=== PATIENT | female | born 1990 | race Caucasian/White ===

== ENCOUNTER 2021-09-11 15:22 | Inpatient (IN) | payer OTHER ==
[2021-09-11 16:06] VITALS: TEMP 97.8
[2021-09-11 16:34] VITALS: BMI 33.5
[2021-09-11] MEDS ORDERED: TERBUTALINE SULFATE 1 MG/1 ML VIAL SQ ONE ×2 (16:37→16:40)
[2021-09-11 17:28] VITALS: BP 95/58; PULSE 94
[2021-09-11] MEDS ORDERED: ELECTROLYTE-148 SOLN 1,000 ML IV SCH (18:15)
== END 2021-09-11 19:35 | disposition home or self-care (01) | DRG 833 ==
LOC: JLDR 15:22
PROVIDERS: ADMIT Obstetrics & Gynecology; ATTEND Obstetrics & Gynecology
PROC: 10S0XZZ Reposition Products of Conception, External Approach (ICD-10-PCS; principal; 2021-09-11)
DX: O32.8XX0 Maternal care for other malpresentation of fetus, not applicable or unspecified (principal); Z3A.38 38 weeks gestation of pregnancy

== ENCOUNTER 2021-09-20 16:50 | Inpatient (IN) | payer OTHER ==
[2021-09-20] MEDS ORDERED: CITRIC ACID/SODIUM CITRATE 30 ML UNIT-DOSE CUP PO ONE (17:00)
[2021-09-20] MEDS ORDERED: ELECTROLYTE-148 SOLN 500 ML IV ONE ×2 (17:00→18:00)
[2021-09-20 17:55] VITALS: BMI 33.5
[2021-09-20] MEDS ORDERED: EPINEPHrine 1:1,000 1 MG/ML VIAL ONE (18:37)
[2021-09-20] MEDS ORDERED: PHENYLEPHRINE HCL 10 MG/1 ML SINGLE DOSE VIAL ONE (18:38)
[2021-09-20] MEDS ORDERED: OXYTOCIN 20 UNITS in 0.9% NS 20 UNIT/1,000 ML INFUS.BAG IV ONE ×3 (18:38→21:05)
[2021-09-20] MEDS ORDERED: ceFAZolin SODIUM 1 GM VIAL ONE (18:51)
[2021-09-20] MEDS ORDERED: SODIUM CHLORIDE 0.9% P/F 10 ML VIAL IJ ONE (18:52)
[2021-09-20] MEDS ORDERED: ONDANSETRON 4 MG/2 ML VIAL ONE (19:48)
[2021-09-20 21:17] LABS: CORD BASE EXCESS -4.6 mmol/L (0-2); CORD HCO3 20.9 mmHg (20-29); CORD PCO2 39.9 mmHg (30-78); CORD pH 7.336 (7.14-7.44)
[2021-09-20 21:19] LABS: CORD HCO3 21.8 mmHg (20-29); CORD PCO2 57.2 mmHg (30-78); CORD pH 7.198 (7.14-7.44)
[2021-09-20] MEDS ORDERED: ONDANSETRON 4 MG/2 ML VIAL IVPUSH PRN (21:37)
[2021-09-20] MEDS ORDERED: KETOROLAC TROMETHAMINE 30 MG/1 ML VIAL IVPUSH PRN (21:43)
[2021-09-20] MEDS ORDERED: METOCLOPRAMIDE HCL INJECTION 10 MG/2 ML VIAL IVPUSH ONE (22:28)
[2021-09-20] MEDS ORDERED: METOCLOPRAMIDE HCL INJECTION 10 MG/2 ML VIAL ONE (22:30)
[2021-09-21] MEDS: ELECTROLYTE-148 SOLN 1,000 ML IV SCH (00:25)
[2021-09-21] MEDS: ACETAMINOPHEN 1000 MG/100 ML BAG IVPB SCH ×4 (01:08→16:10)
[2021-09-21 09:32] LABS: HEMATOCRIT 31.2 % (32.4-45.2); HEMOGLOBIN 10.4 GM/dL (10.7-15.3); MCH 26.3 pg (25.7-33.7); MCHC 33.3 g/dl (32.0-36.0); MEAN PLT VOLUME 10.1 fl (7.5-11.1); PLATELET COUNT 119 10^3/uL (134-434); RBC 3.95 M/mm3 (3.60-5.2); RDW 14.6 % (11.6-15.6); WHITE BLOOD COUNT 12.8 K/mm3 (4.0-10.0)
[2021-09-21] MEDS: IBUPROFEN 600 MG TABLET (FP) PO PRN ×2 (11:59→20:14)
[2021-09-21] MEDS: oxyCODONE HCL 5 MG TABLET PO PRN (23:32)
[2021-09-22] MEDS: ACETAMINOPHEN 500 MG TABLET (FP) PO PRN ×2 (05:31→12:43)
[2021-09-22] MEDS: oxyCODONE HCL 5 MG TABLET PO PRN ×3 (07:54→23:28)
[2021-09-22] MEDS ORDERED: BISACODYL 10 MG SUPP.RECT PR PRN (09:52)
[2021-09-22] MEDS: IBUPROFEN 600 MG TABLET (FP) PO PRN ×2 (09:56→19:57)
[2021-09-22] MEDS: ELECTROLYTE-148 SOLN 1,000 ML IV SCH (23:30)
[2021-09-23] MEDS: ACETAMINOPHEN 500 MG TABLET (FP) PO PRN (06:28)
[2021-09-23] MEDS: IBUPROFEN 600 MG TABLET (FP) PO PRN ×3 (07:58→21:48)
[2021-09-23 12:25] LABS: HEMATOCRIT 33.6 % (32.4-45.2); HEMOGLOBIN 11.1 GM/dL (10.7-15.3); MCH 26.6 pg (25.7-33.7); MCHC 33.1 g/dl (32.0-36.0); MEAN CELL VOLUME 80.3 fl (80-96); MEAN PLT VOLUME 9.6 fl (7.5-11.1); PLATELET COUNT 134 10^3/uL (134-434); RBC 4.18 M/mm3 (3.60-5.2); RDW 14.9 % (11.6-15.6); WHITE BLOOD COUNT 10.2 K/mm3 (4.0-10.0)
[2021-09-24] MEDS: IBUPROFEN 600 MG TABLET (FP) PO PRN (09:04)
[2021-09-24 09:31] VITALS: BP 102/69; PULSE 93; TEMP 98.5
[2021-09-24] MEDS: ACETAMINOPHEN 500 MG TABLET (FP) PO PRN (12:05)
== END 2021-09-24 14:03 | disposition home or self-care (01) | DRG 788 ==
LOC: JLDR 16:50 → J3W 23:11
PROVIDERS: ADMIT Obstetrics & Gynecology; ATTEND Obstetrics & Gynecology
PROC: 10D00Z1 Extraction of Products of Conception, Low, Open Approach (ICD-10-PCS; principal; 2021-09-20)
DX: O32.8XX0 Maternal care for other malpresentation of fetus, not applicable or unspecified (principal); O69.81X0 Labor and delivery complicated by cord around neck, without compression, not applicable or unspecified; Z3A.39 39 weeks gestation of pregnancy; Z37.0 Single live birth
CPT/HCPCS: 36415; 36600; 82803; 85027; 88307-TC